=== PATIENT | female | born 1985 | race Caucasian/White ===

== ENCOUNTER → 2018-02-03 16:39 | Outpatient (CLI) | payer OTHER, SELFPAY ==
[2018-02-09 17:09] LABS: HPV APTIMA, High Risk Negative (Negative)
== END ==
PROVIDERS: Visit Provider Obstetrics & Gynecology
DX: Z12.4 Encounter for screening for malignant neoplasm of cervix (principal)
CPT/HCPCS: 87624; 88175; G0145

== ENCOUNTER → 2018-05-19 11:16 | Outpatient (CLI) | payer OTHER, SELFPAY ==
[2016-02-01 08:28] VITALS: BMI 23.6
== END ==
PROVIDERS: Family Provider Family Medicine; PCP Family Medicine; Referring Provider Family Medicine; Visit Provider Family Medicine
DX: L03.012 Cellulitis of left finger (principal)
CPT/HCPCS: 87070; 87077; 87205

== ENCOUNTER → 2020-04-12 15:53 | Outpatient (CLI) | payer OTHER, SELFPAY ==
--- NOTE | 2020-04-12 15:55 | BI_ITS ---
MAMMOGRAPHY - BILATERAL SCREENING REASON FOR EXAM: Female, 34 years old. Routine annual screening examination. PERTINENT HISTORY: Aunt with breast cancer. TECHNIQUE: Digital bilateral breast ede (3D mammographic acquisition) in the CC and MLO projections. 2-D mediolateral oblique (MLO) and craniocaudad (CC) views of both breasts were obtained. CAD: Full Field Digital Mammography with Computer Added Detection was performed. COMPARISON: None. Baseline examination. FINDINGS: Breast Composition: The breasts are heterogeneously dense, which may obscure small masses. There are no dominant masses or suspicious calcifications. No other significant abnormalities are identified. BI/SCRN MAMM (CAD)W/EDE BILAT IMPRESSION: Negative screening mammogram. Yearly followup mammogram recommended. (A) ASSESSMENT CATEGORY: Approximately 10% of breast cancers are not detected by mammography. A normal mammogram should not delay biopsy of a clinically suspicious abnormality. [id number] Electronically Signed: Familia Vines MD at 8:14 EST , Service support ,
== END ==
PROVIDERS: PCP Family Medicine; Referring Provider Obstetrics & Gynecology; Visit Provider Obstetrics & Gynecology
DX: Z12.31 Encounter for screening mammogram for malignant neoplasm of breast (principal); Z80.3 Family history of malignant neoplasm of breast
CPT/HCPCS: 77063; 77067

== ENCOUNTER 2021-05-08 12:07 | Outpatient (CLI) | payer OTHER, SELFPAY ==
[2021-05-10 14:24] LABS: HPV APTIMA, High Risk Negative (Negative)
== END 2021-05-08 23:59 | disposition home or self-care (01) ==
LOC: LABSPEC 12:08
PROVIDERS: PCP Family Medicine; Visit Provider Obstetrics & Gynecology
DX: Z12.4 Encounter for screening for malignant neoplasm of cervix (principal)
CPT/HCPCS: 87624; 88175; G0145

== ENCOUNTER → 2021-10-05 | Outpatient (CLI) | payer OTHER, SELFPAY ==
--- NOTE | 2021-10-05 13:55 | RAD_ITS ---
STUDY: X-RAY - NASAL BONES REASON FOR EXAM: Female, 36 years old. NASAL TRAUMA TECHNIQUE: 3 view(s) of the nasal bones. COMPARISON: None. FINDINGS: Normal nasal bones. Normal anterior nasal spine. There is no demonstrated soft tissue swelling. The remaining visualized osseous structures are normal. Normal visualized paranasal sinuses. RAD/Nasal Bones min 3 Views IMPRESSION: Normal x-ray examination of the nasal bones. Electronically Signed: Familia Vines MD at 14:31 EDT ,
== END | disposition home or self-care (01) ==
PROVIDERS: PCP Family Medicine; Referring Provider Family Medicine; Visit Provider Family Medicine
DX: S09.92XA Unspecified injury of nose, initial encounter (principal)
CPT/HCPCS: 70160

== ENCOUNTER 2022-09-17 08:15 | Outpatient (CLI) | payer OTHER, SELFPAY ==
[2022-09-17 09:25] LABS: NATERA MAILED SPECIMEN
== END 2022-09-17 23:59 | disposition home or self-care (01) ==
LOC: PAVLAB 08:15
PROVIDERS: PCP Family Medicine; Referring Provider Registered Nurse; Visit Provider Registered Nurse
DX: Z80.3 Family history of malignant neoplasm of breast (principal)

== ENCOUNTER → 2024-08-02 | Outpatient (CLI) | payer OTHER, SELFPAY ==
--- NOTE | 2024-08-02 08:39 | BI_ITS ---
EXAM: SCRN MAMM (CAD)W/EDE BILAT DATE: 08/02/2024 CLINICAL HISTORY: F, Age 39 y/o , SCREENING MAMMOGRAM BREAST CANCER RISK ASSESSMENT: Has not been calculated. TECHNIQUE: Bilateral screening digital breast tomosynthesis with 2D and 3D images. Computer aided detection. COMPARISON: Prior exam(s) dated 04/12/2020. FINDINGS: TISSUE DENSITY: The breast tissue is heterogenously dense, which may obscure small masses. Bilateral Breast Mammographic Findings: No suspicious masses, suspicious clustered microcalcifications, architectural distortion or secondary sign of malignancy is identified in either breast. Benign-appearing round microcalcifications are seen in both breasts. Benign round microcalcifications are seen in both breasts. BI/SCRN MAMM (CAD)W/EDE BILAT IMPRESSION: OVERALL FINAL ASSESSMENT: BIRADS 2 BENIGN FINDING RECOMMENDATION: Routine annual follow-up in 1 Year A letter with findings and recommendations will be mailed to the patient. Reading Location: [id number]
== END | disposition home or self-care (01) ==
LOC: OPBI 08:38
PROVIDERS: PCP Family Medicine; Referring Provider Obstetrics & Gynecology; Visit Provider Obstetrics & Gynecology
DX: Z12.31 Encounter for screening mammogram for malignant neoplasm of breast (principal)
CPT/HCPCS: 77063; 77067

== ENCOUNTER → 2025-03-09 | Outpatient (CLI) | payer OTHER, SELFPAY ==
--- NOTE | 2025-03-09 09:46 | RAD_ITS ---
PROCEDURE: CHEST PA AND LATERAL 03/09/2025 REASON FOR EXAM: SWELLING OVER R SC JOINT. TECHNIQUE: Procedure Code: RADCXR Modality: DX Procedure: CHEST PA AND LATERAL FINDINGS: No focal consolidation. No pleural effusion or pneumothorax. Cardiac silhouette is within normal limits. No acute fractures. RAD/Chest PA and Lateral IMPRESSION: No focal consolidation. Reading Location: [id number]
--- OUTSIDE RECORDS SUMMARY | 2025-03-09 10:46 | XMS RPT_ITS | CCD ---
Author Organization [facility] Care Team Providers Care Embedded Firmware Developer Name Role Phone NOEMÍ ELDRIDGE SUMMER Unavailable Unavailable NOEMÍ ELDRIDGE SUMMER Unavailable Unavailable NOEMÍ ELDRIDGE SUMMER Unavailable Unavailable Dr. Josias Nobles Primary Care Provider [phone] Dr. Josias Nobles Referring Provider Dr. Aniyah Luevano Attending Provider Dr. Jose Alberto Nobles MD Primary Care Provider Dr. Aniyah Luevano DO Attending Provider Dr. Aniyah Luevano DO Referring Provider Dr. Jose Alberto Nobles MD Referring Provider [phone] Jose Alberto Nobles Primary Care Unavailable Jose Alberto Nobles Referring Unavailable Marifer Oneil Attending Unavailable Jose Alberto Nobles Referring Unavailable Marifer Oneil Attending Unavailable Jose Alberto Nobles Primary Care Unavailable Aniyah Luevano Attending Aniyah Hargrove Referring UnavailJose Alberto Saunders Primary Care Unavailable Jose Alberto Nobles Referring Unavailable Aniyah Luevano Attending UnavailJose Alberto Saunders Primary Care Unavailable Allergies Allergy Classification Reported Allergen(s) Allergy Type Date of Onset Reaction(s) Facility (3 sources) Cephalexin Drug Allergy 09-10-[address] [facility] (1 source) Cephalexin Drug Allergy 09-20-2024 [facility] Repository Medications Current Medications Medication Drug Class(es) Dates Sig (Normalized) Sig (Original) [place] (Nk) (3 sources) Start: 09-10-2022 [place] (Nk) A ctive September 10, 2022 12:00am Completed/Discontinued Medications Medication Drug Class(es) Dates Sig (Normalized) Sig (Original) acetaminophen 325 mg / oxyCODONE hydrochloride 5 mg oral tablet (3 sources) Opioid Agonist Start: 02-01-2016 End: 09-10-2022 take 1 tablet by mouth every four hours as needed for pain Oxycodone-Acetamino phen 1 TABLET tablet Discontinued 1 - 2 {tbl} PO EVERY 4 HOURS NEEDED as needed for Pain February 01, 2016 1:00am September 10, 2022 8:57am 1 tab for moderate pain 2 tabs for severe pain Start: 02-01-2016 End: 09-10-2022 take 1 tablet by mouth every four hours as needed for pain Oxycodone-Acetaminophen Discontinued 1 - 2 TABLET PO EVERY 4 HOURS NEEDED February 01, 2016 1:00am September 10, 2022 8:57am 1 tab for moderate pain 2 tabs for severe pain docusate sodium 100 mg oral capsule (3 sources) Start: 02-01-2016 End: 09-10-2022 take 1 capsule by mouth twice daily as needed for constipation Docusate Sodium (Colace) 100 MG capsule Discontinued 100 mg PO TWICE DAILY NEEDED as needed for Constipation 60 0 February 01, 2016 1:00am September 10, 2022 8:57am ibuprofen 800 mg oral tablet (3 sources) Nonsteroidal Anti-inflammatory Drug Start: 02-01-2016 End: 09-10-2022 take 1 tablet by mouth three times daily as needed for pain Ibuprofen (Motrin) 800 MG tablet Discontinued 800 mg PO 3 TIMES DAILY NEEDED as needed for Pain 40 February 01, 2016 1:00am September 10, 2022 8:57am Vit,Mrci97-Bwro -Folic (Prenatabs Fa) 1 TABLET tablet (3 sources) Start: 12-14-2015 End: 09-10-2022 take 1 tablet by mouth once daily Vit,Cdah24-Znix-Bv lic (Prenatabs Fa) 1 TABLET tablet Discontinued 1 {tbl} PO DAILY December 14, 2015 12:00am September 10, 2022 8:57am Start: 12-14-2015 End: 09-10-2022 take 1 tablet by mouth once daily Vit,Yoqk87-Lxnu-Jrjds (Prenatab s Fa) 1 TABLET tablet Discontinued 1 TABLET PO DAILY December 14, 2015 12:00am September 10, 2022 8:57am Problems Problem Classification Problem Date Documented Date Episodic/Chronic Other congenital anomalies (3 sources) Other congenital malformations of abdominal wall; 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 Results Test Name Value Interpretation Reference Range Facility Dental Sales Representative Office Visit Reporton 09-20-2024 Dental Sales Representative Office Visit Report [facility] [address], [address] [place] [address] OFFICE VISIT Date of Service: 09/20/24 MR#: [id number] Acct: [id number] Name: NAOMI SHORE Rep #: [id number] : 1985 Provider: Dr. 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) Milieu Therapist Required: No Is patient in pain?: No Allergies cephalexin Allergy (Verified 09/20/24 10:13) Rash Medications ???Medication ???Instructions ???Recorded ???Confirmed ???Type NK 09/10/22 09/20/24 History Post menopausal: No Patient : No : No PFSH Medical History Genetic testing of female Surgical History S/P tubal ligation Family History Aunt Breast cancer Grandmother Ovarian cancer Social History Smoking Status: Never smoker alcohol intake: never substance use type: does not use caffeine: No what type of physical activity do you participate in: running frequency: 5-6 times per week seatbelt use: always do you feel safe at home: Yes additional social history: -Shayne History 2 Elective abortions Hx Para 2 Spontaneous abortions Hx # Term Pregnancies Ectopic pregnancies Hx # Pregnancies Multiple births # of living children Past Pregnancies Del. Date Name GA/Weeks Outcome Route Bth Weight Infant Gen Labor Lgth Anesthesia Del Locatn Provider FOB Unknown Drew 41 Unknown Yue 41 HPI Encounter for routine gynecological examination Details: NAOMI SHORE is a 39 year old who presents for annual exam. Last PAP:05/08/21, normal with neg HPV History of abnormal PAP: no Last mammogram: age 34 normal- baseline done for fhx of breast cancer History of abnormal mammogram: no Colon cancer screening: n/a Other preventative health care screenings: followed by pc Female Reproductive History Cycle Length: 21-35 Bleeding Duration: 5 Questions: metorrhagia: No, sexually active: Yes, dyspareunia: No and PCB: No Menopausal Symptoms: No hot flashes, No night sweats, No weight change, No mood changes, No difficulty concentrating, No sleep problems and No change in libido ROS Const Constitutional: Reports as per HPI; Denies fatigue, increased appetite, poor appetite, night sweats, weight gain or weight loss Cardio Card: Denies chest pain Resp Resp: Denies cough or dyspnea GI GI: Reports as per HPI; Denies abdominal pain, bloating, constipation, nausea or vomiting : Reports as per HPI and other; Denies difficulty voiding, dysuria, hematuria, hot flashes, nipple discharge, pelvic pain, prolapse symptoms, urinary frequency, urinary incontinence, urinary urgency, vaginal discharge, vaginal dryness, vaginal odor or vaginal pruritus Skin Skin/Breast: Denies changing lesions, breast mass, breast pain, breast skin changes or nipple discharge Psych Psych: Denies anxiety, change in libido, depression or difficulty concentrating Exam Const General: cooperative, healthy appearing, comfortable, no acute distress, well developed and well groomed HENMT Head: normal to inspection and normocephalic Ears: hearing grossly normal bilaterally and external ears normal Nose: external nose normal Face and sinus: normal facial exam Neck Neck: normal visual inspection, full ROM and no lymphadenopathy Thyroid: thyroid normal Chest Chest palpation inspection: normal inspection of the chest Breast inspection: normal inspection of the breasts and normal inspection of the axillae Breast palpation: normal palpation of the breasts, normal palpation of the axillae and no axillary lymphadenopathy Resp Effort Inspection: normal respiratory effort GI Inspection: normal to inspection and non-distended Palpation: soft, no hepatosplenomegaly and no guarding General: bladder normal to palpation External Female Exam: normal external appearance, normal appearance of the urethra and no lesions Urethra: normal appearance of the urethra and normal palpation Speculum Exam - Vagina: normal appearance of the vagina and normal vaginal discharge Speculum Exam - Cervix: normal appearance of the cervix, no cervical discharge, no lesions and nontender Bimanual Exam- Vagina Uterus: normal bimanual exam, uterine size normal, bladder normal to palpation, No tender, uterine mobility normal, consistency normal, non-tender (more content not included)... Normal [facility] Breast imaging reportOrdered By: Nella Gibson on 08-02-2024 Study report [facility] Imaging Services [address] [place], [place] [id number] SCRN MAMM (CAD)W/EDE BILAT MR#: [id number] Acct: [id number] Name: NAOMI SHORE Rep #: [id number] : 1985 F 39 From: Kamaljit Gibson DO PCP: Dr. Jose Alberto Nobles MD Status: REG CLI Study:SCRN MAMM (CAD)W/EDE BILAT Date of Exa m: 08/02/24 Exam# [id number] Ordering Dr: Aniyah Roca DO EXAM: SCRN MAMM (CAD)W/EDE BILAT DATE: 08/02/2024 CLINICAL HISTORY: F, Age 39 y/o , SCREENING MAMMOGRAM BREAST CANCER RISK ASSESSMENT: Has not been calculated. TECHNIQUE: Bilateral screening digital breast tomosynthesis with 2D and 3D images. Computeraided detection. COMPARISON: Prior exam(s) dated 04/12/2020. FINDINGS: TISSUE DENSITY: The breast tissue is heterogenously dense, which may obscure small masses. Bilateral Breast Mammographic Findings: No suspicious masses, suspicious clustered microcalcifications, architectural distortion or secondary sign of malignancy is identified in either breast. Benign-appearing round microcalcifications are seen in both breasts. Benign round microcalcifications are seen in both breasts. BI/SCRN MAMM (CAD)W/EDE BILAT IMPRESSION: OVERALL FINAL ASSESSMENT: BIRADS 2 BENIGN FINDING RECOMMENDATION: Routine annual follow-up in 1 Year A letter with findings and recommendations will be mailed to the patient. Reading Location: [id number] CC: Dr. Jose Alberto Nobles MD; Dr. Aniyah Luevano DO ~ Location Man: Signed [facility] SCRN MAMM (CAD)W/EDE BILATo n 08-02-2024 SCRN MAMM (CAD)W/EDE BILAT [facility] Imaging Services [address] [place] [id number] SCRN MAMM (CAD)W/EDE BILAT MR#: [id number] Acct: [id number] Name: NAOMI SHORE Rep #: [id number] : 1985 F 39 From: Nella Recinos PCP: Dr. Jose Alberto Nobles MD Status: [facility] Study: SCRN MAMM (CAD)W/EDE BILAT Date of Exam: 07/22 05/18 Exam# [id number] Ordering Dr: Aniyah Luevano DO EXAM: SCRN MAMM (CAD)W/EDE BILAT DATE: 08/02/2024 CLINICAL HISTORY: F, Age 39 y/o , SCREENING MAMMOGRAM BREAST CANCER RISK ASSESSMENT: Has not been calculated. TECHNIQUE: Bilateral screening digital breast tomosynthesis with 2D and 3D images. Computer aided detection. COMPARISON: Prior exam(s) dated 04/12/2020. FINDINGS: TISSUE DENSITY: The breast tissue is heterogenously dense, which may obscure small masses. Bilateral Breast Mammographic Findings: No suspicious masses, suspicious clustered microcalcifications, architectural distortion or secondary sign of malignancy is identified in either breast. Benign-appearing round microcalcifications are seen in both breasts. Benign round microcalcifications are seen in both breasts. BI/SCRN MAMM (CAD)W/EDE BILAT IMPRESSION: OVERALL FINAL ASSESSMENT: BIRADS 2 BENIGN FINDING RECOMMENDATION: Routine annual follow-up in 1 Year A letter with findings and recommendations will be mailed to the patient. Reading Location: [id number] CC: Dr. Jose Alberto Nobles MD; Dr. Aniyah Luevano DO Location Man: Signed Normal [facility] Dental Sales Representative Office Visit Reporton 12-04-2023 Dental Sales Representative Office Visit Report [facility] [address], [address] [place] [address] OFFICE VISIT Date of Service: 12/04/23 MR#: [id number] Acct: [id number] Name: NAOMI SHORE Rep #: [id number] : 1985 Provider: SYLVIA Pelayo Age/Sex: 38/F Location: [facility] Status: Signed Intake Vital Signs 10/23/23 14:56 12/04/23 08:51 Height 5 ft 2 in 5 ft 2 in Weight: 126 lb BMI 23.0 BP 106/69 Intake Visit Reasons: 4-6 wk follow up Chief Complaint: 4-6wk cyst follow up Milieu Therapist Required: No Is patient in pain?: No Allergies cephalexin Allergy (Verified 12/04/23 08:49) Rash Medications ???Medication ???Instructions ???Recorded ???Confirmed ???Type NK 09/10/22 12/04/23 History Is last menstrual period known: Yes Last Menstrual Period: 11/23/23 Post menopausal: No Patient : No : No Control Method: none PFSH Medical History Genetic testing of female Surgical History S/P tubal ligation Family History Aunt Breast cancer Grandmother Ovarian cancer Social History Smoking Status: Never smoker alcohol intake: never substance use type: does not use caffeine: No what type of physical activity do you participate in: running frequency: 5-6 times per week seatbelt use: always do you feel safe at home: Yes additional social history: -Shayne HPI 4-6 wk follow up Details: NAOMI SHORE is a 38 year old who presents for re-eval of inclusion cyst. She reports this is if anything improved, not worse. She reports there is no pain, swelling, erythema, or fever chills. Female Reproductive History Last Menstrual Period: 11/23/23 History 2 Elective abortions Hx Para 2 Spontaneous abortions Hx # Term Pregnancies Ectopic pregnancies Hx # Pregnancies Multiple births # of living children Past Pregnancies Del. Date Name GA/Weeks Outcome Route Bth Weight Infant Gen Labor Lgth Anesthesia Del Locatn Provider FOB Unknown Drew 41 Unknown Yue 41 ROS Const ROS Unobtainable: All systems reviewed are unremarkable except as noted in H Exam Const General: cooperative, healthy appearing, comfortable and well developed Speculum Exam - Vagina: normal appearance of the vagina (simple inclusion cyst again noted clitoral. ) and normal vaginal discharge Neuro General: patient alert, patient awake and moves all extremities Coding Level of Care Code Established Pt Off vis,est,level 2 Patient Type Established Diagnoses Inclusion cyst of vulva N90.7 Assessment and Plan Assessment and Plan (1) Inclusion cyst of vulva: Status: Acute Plan: Continued expectant management; notify office with worsening of symptoms or need for removal. 12/04/23 0908 Date Marifer Boyer Signature: Date (if applicable) CC: Normal [facility] Dental Sales Representative Office Visit Reporton 10-23-2023 Dental Sales Representative Office Visit Report [facility] [address] [place] [address] OFFICE VISIT Date of Service: 10/23/23 MR#: [id number] Acct: [id number] Name: NAOMI SHORE Rep #: [id number] : 1985 Provider: SYLVIA Pelayo Age/Sex: 38/F Location: [facility] Status: Signed Intake Vital Signs 09/17/23 09:31 10/09/23 10:58 10/23/23 14:51 10/23/23 14:56 Height 5 ft 2 in 5 ft 2 in 5 ft 2 in 5 ft 2 in Weight: 127 lb BMI 23.2 BP 133/74 H Intake Visit Reasons: PT HAS CYST Chief Complaint: Cyst Milieu Therapist Required: No Is patient in pain?: No Allergies cephalexin Allergy (Verified 10/23/23 14:50) Rash Medications ???Medication ???Instructions ???Recorded ???Confirmed ???Type NK 09/10/22 10/23/23 History Is last menstrual period known: Yes Last Menstrual Period: 10/01/23 Post menopausal: No Patient : No : No PFSH Medical History Genetic testing of female Surgical History S/P tubal ligation Family History Aunt Breast cancer Grandmother Ovarian cancer Social History Smoking Status: Never smoker alcohol intake: never substance use type: does not use caffeine: No what type of physical activity do you participate in: running frequency: 5-6 times per week seatbelt use: always do you feel safe at home: Yes additional social history: -Shayne LORI PT HAS CYST Details: NAOMI SHORE is a 38 year old who presents for small lump noted to right/middle labia. She reports she noticed this approx 5 months ago. She reports no drainage, no pain, no fever or chills, redness. She reports this has been consistently there; has not noticed change to this. Female Reproductive History Last Menstrual Period: 10/01/23 Questions: metorrhagia: No and sexually active: Yes History 2 Elective abortions Hx Para 2 Spontaneous abortions Hx # Term Pregnancies Ectopic pregnancies Hx # Pregnancies Multiple births # of living children Past Pregnancies Del. Date Name GA/Weeks Outcome Route Bth Weight Infant Gen Labor Lgth Anesthesia Del Locatn Provider FOB Unknown Drew 41 Unknown Yue 41 ROS Const ROS Unobtainable: All systems reviewed are unremarkable except as noted in H Exam Const General: cooperative, healthy appearing, comfortable and well developed Speculum Exam - Vagina: normal appearance of the vagina (exam completed with SM with simple inclusion cyst noted clitoral. ) and normal vaginal discharge Neuro General: patient alert, patient awake and moves all extremities Coding Level of Care Code Established Pt Off vis,est,level 2 Patient Type Established Diagnoses Inclusion cyst of vulva N90.7 Assessment and Plan Assessment and Plan (1) Inclusion cyst of vulva: Status: Acute Plan: Expectant management for now; warm compress at home. Will return in 4-6 weeks to re-assess and ensure stability. Call office sooner with questions or concerns. 10/23/23 1522 Date Marifer Linaresigner Signature: Date (if applicable) CC: Normal [facility] No Panel InformationOrdered By: Camryn Langford on 09-17-2022 Miscellaneous Test Comment MAILED SPECIMEN [facility] CNTHERAPYon 06-12-2021 CNTHERAPY OT/PT/Speech Visit (PTWS) NAOMI SHORE ([id number]) 1985 F Date Time Provider Department 06/12/21 2:45 PM BAIRON HE Date Time Provider Department Center 06/12/2021 2:45 PM [id number] LLOYD Reason for Visit: PT Discharge [752] Primary Visit Diagnosis:JAY (stress urinary incontinence, female) [N39.3] Allergies As of Date: 06/12/2021 (Not on File) Date Reviewed: Never Reviewed Normal [facility] CNTHERAPYon 06-05-2021 CNTHERAPY OT/PT/Speech Visit (PTWS) NAOMI SHORE ([id number]) 1985 F Date Time Provider Department 06/05/21 2:45 PM ABIRON HE Date Time Provider Department [place] 06/05/2021 2:45 PM [id number] LLOYD Reason for Visit: Physical Therapy [503] Primary Visit Diagnosis:JAY (stress urinary incontinence, female) [N39.3] Allergies As of Date: 06/05/2021 (Not on File) Date Reviewed: Never Reviewed Normal [facility] CNTHERAPYon 05-29-2021 CNTHERAPY OT/PT/Speech Visit (PTWS) NAOMI SHORE ([id number]) 1985 F Date Time Provider Department 05/29/21 2:45 PM BAIRON HE Date Time Provider Department Center 05/29/2021 2:45 PM [id number] LLOYD Reason for Visit: Physical Therapy [503] Primary Visit Diagnosis:JAY (stress urinary incontinence, female) [N39.3] Allergies As of Date: 05/29/2021 (Not on File) Date Reviewed: Never Reviewed Normal [facility] CNTHERAPYon 05-22-2021 CNTHERAPY OT/PT/Speech Visit (PTWS) NAOMI SHORE ([id number]) 1985 F Date Time Provider Department 05/22/21 2:45 PM BAIRON HE Date Time Provider Department Center 05/22/2021 2:45 PM [id number], CARA PTWS [facility] Reason for Visit: PT Eval [747] Primary Visit Diagnosis:JAY (stress urinary incontinence, female) [N39.3] Allergies As of Date: 05/22/2021 (Not on File) Date Reviewed: Never Reviewed Letter Text Normal [facility] Vital Signs Date Time Vital Sign Value Performing Clinician Juan medeiros 09-20-2024 10:14-0400 Body height 157.[address] Jose Alberto Nobles MD Work Phone: [facility] 09-20-2024 10:14-0400 Body mass index (BMI) [Ratio] 23.6 kg/m2 Dr. Jose Alberto Nobles MD Work Phone: [facility] 09-20-2024 10:14-0400 Body weight 58.[address] Jose Alberto Nobles MD Work Phone: [facility] 09-20-2024 10:14-0400 Diastolic blood pressure 80 mm[Hg] Dr. Jose Alberto Nobles MD Work Phone: [facility] 09-20-2024 10:14-0400 Systolic blood pressure 122 mm[Hg] Dr. Jose Alberto Nobles MD Work Phone: [facility] 09-10-2022 08:57-0400 Body height 157.[address] Josias coe Work Phone: [facility] 09-10-2022 08:57-0400 Body mass index (BMI) [Ratio] 22.9 kg/m2 Dr. Josias Nobles Work Phone: [facility] 09-10-2022 08:57-0400 Body weight 56.[address] Josias coe Work Phone: [facility] 09-10-2022 08:57-0400 Diastolic blood pressure 74 mm[Hg] Dr. Josias Nobles Work Phone: [facility] 09-10-2022 08:57-0400 Systolic blood pressure 115 mm[Hg] Dr. Josias Nobles Work Phone: [facility] Encounters Encounter Date Encounter Type Care Provider Facility Start: 09-20-2024 End: 09-20-[address] Aniyah Luevano DO -[facility] Work Phone: Start: 09-20-2024 End: 09-20-[address] Aniyah Luevano DO [facility] Start: 09-20-2024 End: 09-20-[address] Jose Alberto Nobles MD Work Phone: -[facility] Start: 08-02-2024 End: 08-02-[address] Jose Alberto Nobles MD Work Phone: [facility] Work Phone: Start: 08-02-2024 End: 08-02-[address] Aniyah Luevano DO -[facility] Work Phone: Start: 08-02-2024 End: 08-02-2024 ambulatory Aniyah Luevano Facility:[facility] Start: 12-04-2023 End: 12-04-2023 ambulatory Jose Alberto Nobles Facility:[facility] Start: 10-23-2023 End: 10-23-2023 ambulatory Jose Alberto Nobles Facility:[facility] Start: 09-17-2022 End: 09-17-[address] Josias Nobles Work Phone: [facility] Work Phone: Start: 09-17-2022 End: 09-17-[address] Josias Nobles Work Phone: [facility] Start: 09-10-2022 End: 09-10-[address] Josias Nobles Work Phone: [facility] Work Phone: Start: 01-07-2017 End: 03-14-2017 Ambulatory NOEMÍ Russell [facility] Procedures Date Procedure Procedure Detail Performing Clinician Start: 08-02-2024 Screening mammography Dania Nobles MD Work Phone: Payers Date Payer Category Payer Self-pay [id number] 2023 Private Health Insurance [id number] 2012 Unknown [id number] Unknown [id number] Unknown [id number] Unknown [id number] Unknown [id number] Unknown [id number] Unknown [id number] Social History Date Type Detail Facility [facility]: [facility] Start: 1985 Sex [facility]igned At [facility] Start: 10-09-2023 [facility] Progress note 06-12-2021 Note Date & Type Note Facility 06-12-2021 Note HNO ID: [id number] Author: Bairon He PT Service: ? Author Type: Physical Therapist Type: Progress Notes Filed: 06/12/2021 3:14 PM Note Text: Episode Visit Count: 4 Therapist That Will Oversee The Plan Of Care: Bairon He Start of Care Date: 05/22/21 Onset Date: 11/23/15 Plan of Care Certification Date: 05/22/21 Next Certification Due Date: 07/21/21 Patient Identified by Name and Date of : Yes REHABILITATION AND SPORTS THERAPY PHYSICAL THERAPY DISCONTINUANCE OF CARE PLAN OF CARE UPDATE: Assessment: Naomi Shore is discontinued from Physical Therapy services due to goal achievement and maximal benefit.. Patient was seen for 4 visits from Start of Care Date: 05/22/21 to 06/12/2021 and treatment included: Therapeutic exercise and Self-correction management. Goals for Episode of Care: created on 05/22/21 Updated on: 06/12/2021 Incontinence: Patient to demonstrate independence with HEP-MET Increase endurance of pelvic floor to: 10 seconds-MET Patient able to complete 5 quick flicks in 10 seconds to improve JAY with functional tasks-MET Patient able to cough, sneeze, lift and/or exercise without leaking-MET Patient Goals: improve bladder function SUBJECTIVE: Patient Reason for Visit: Pt reports no JAY, able to sneeze, jump, and exercise without leaking. Pt reports good compliance with HEP. Pt reports being pleased with progress, feels comfortable continuing on her own at home. Pain: Pain Pain Level: 0 Post Treatment Pain Post Treatment Pain Level: 0 PROMIS Scales T-scores: mean of general population = 50. 5 points is clinically meaningfully difference Percentiles provide an indication of how the patient's score ranks in relation to the general population. Higher percentile rankings indicate better function/quality of life. 50th percentile is the average of the general population and indicates half of respondents had a worse score. T-scores: mean of general population = 50. 5 points is clinically meaningfully difference Percentiles provide an indication of how the patient's score ranks in relation to the general population. Higher percentile rankings indicate better function/quality of life. 50th percentile is the average of the general population and indicates half of respondents had a worse score. OBJECTIVE MEASURES WITH LEVEL OF FUNCTION: Pelvic Floor Stress Incontinence: No Pelvic Floor Muscle Assessment Consent for pelvic assessment/testing and treatment: Patient was educated regarding pelvic floor physical therapy assessment/treatment which may include pelvic floor and girdle muscle assessment externally or internally (vaginal or rectal approach).;Patient verbalized consent for the above treatment approaches today. Patient understands they have control of the treatment and an opportunity to stop treatment at any time. Pelvic Floor Muscle Assessment: PERFECT;Muscle Dynamics Power: 4 Endurance: 12 Fast Reps: 10 Contracton Pressure: Moderate squeeze, felt all the way around finger surface Duration of Contraction: >3 seconds Recruitment of pelvic floor muscles: Coordinated Pelvic Floor Manual Assessment Pelvic Floor Tenderness/Hyperactivity: Tested Vaginally in Tested Vaginally in : Supine/hooklying (No tightness/tenderness noted.) TREATMENT: Therapeutic Exercise: 1: Reassessment 2: clamshells, 1x10 each 3: *sidelying hip abduction, 2x10 each 4: quadruped TA bracing, 1x10 5: *quadruped TA bracing with alternating arm lift, 1x10 each 6: *quadruped TA bracing with alternating leg lift, 1x10 each 7: *quadruped TA bracing with alternating arm/leg lift, 1x10 each 8: Discussed discharge planning Skilled Intervention: Patient was educated in proper exercise technique and purpose for exercises. Reviewed and educated patient on additions/changes for home exercise program as above (*). Skilled judgment was provided in selection of appropriate interventions. Provided written instruction for home exercise program to facilitate proper performance and compliance. Billing Therapeutic Exercise Treatment Minutes: 31 Total Treatment Time Minutes (timed and untimed codes) : 31 Bairon He PT [facility] Progress note 06-05-2021 Note Date & Type Note Facility 06-05-2021 Note HNO ID: [id number] Author: Bairon He PT Service: ? Author Type: Physical Therapist Type: Progress Notes Filed: 06/05/2021 3:24 PM Note Text: Episode Visit Count: 3 Therapist That Will Oversee The Plan Of Care: Bairon He Start of Care Date: 05/22/21 Onset Date: 11/23/15 Plan of Care Certification Date: 05/22/21 Next Certification Due Date: 07/21/21 Patient Identified by Name and Date of : Yes REHABILITATION AND SPORTS THERAPY PHYSICAL THERAPY TREATMENT NOTE ASSESSMENT: Naomi Shore tolerated the session with no issues. She demonstrated continued improvements in stress urinary incontinence per patient report. The patient will continue to benefit from ongoing skilled physical therapy to progress toward set goals. PLAN FOR NEXT VISIT: reassessment SUBJECTIVE: Patient Reason for Visit: Pt reports no JAY, able to sneeze without leaking, does knack technique rather than squeezing inner thighs together to brace PF. Pt reports good compliance with HEP, is thinking about training for a long distance running race in the near future. Pain: Pain Pain Level: 0 Post Treatment Pain Post Treatment Pain Level: 0 OBJECTIVE MEASURES WITH LEVEL OF FUNCTION: Pelvic Floor Stress Incontinence: No TREATMENT: Therapeutic Exercise: 1: kegal holds, 7sec hold with 4sec rest, 1x10 2: *kegal supersets, 1x10 3: posterior pelvic tilt, 1x10 4: *posterior pelvic tilt with alternating marches, 2x10 5: *clamshells, 2x10 each 6: *quadruped TA bracing, 2x10 7: Reviewed appropriate return to running program Skilled Intervention: Patient was educated in proper exercise technique and purpose for exercises. Reviewed and educated patient on additions/changes for home exercise program as above (*). Skilled judgment was provided in selection of appropriate interventions. Provided written instruction for home exercise program to facilitate proper performance and compliance. Billing Therapeutic Exercise Treatment Minutes: 41 Total Treatment Time Minutes (timed and untimed codes) : 41 Bairon He PT [facility] Progress note 05-29-2021 Note Date & Type Note Facility 05-29-2021 Note HNO ID: [id number] Author: Bairon He PT Service: ? Author Type: Physical Therapist Type: Progress Notes Filed: 05/29/2021 3:11 PM Note Text: Episode Visit Count: 2 Therapist That Will Oversee The Plan Of Care: Bairon He Start of Care Date: 05/22/21 Onset Date: 11/23/15 Plan of Care Certification Date: 05/22/21 Next Certification Due Date: 07/21/21 Patient Identified by Name and Date of : Yes REHABILITATION AND SPORTS THERAPY PHYSICAL THERAPY TREATMENT NOTE ASSESSMENT: Naomi Shore tolerated the session with no issues. She demonstrated improvements in JAY per patient report. The patient will continue to benefit from ongoing skilled physical therapy to progress toward set goals. PLAN FOR NEXT VISIT: continue to progress exercises SUBJECTIVE: Patient Reason for Visit: Pt reports no episodes of JAY since last visit, has not done activities that cause UI (sneezing, coughing, higher intensity exercise). Pt reports good compliance with HEP. Pain: Pain Pain Level: 0 Post Treatment Pain Post Treatment Pain Level: 0 OBJECTIVE MEASURES WITH LEVEL OF FUNCTION: Pelvic Floor Stress Incontinence: No TREATMENT: Therapeutic Exercise: 1: kegal holds, 5sec hold with 5sec rest, 1x10 2: hooklying hip abduction with L5 TB, 2x10 3: *supine TA bracing, 2x10 4: *bridge with glute activation, 2x10 5: *posterior pelvic tilt, 2x10 Skilled Intervention: Patient was educated in proper exercise technique and purpose for exercises. Reviewed and educated patient on additions/changes for home exercise program as above (*). Skilled judgment was provided in selection of appropriate interventions. Provided written instruction for home exercise program to facilitate proper performance and compliance. Billing Therapeutic Exercise Treatment Minutes: 30 Total Treatment Time Minutes (timed and untimed codes) : 30 Bairon He PT [facility] Progress note 05-22-2021 Note Date & Type Note Facility 05-22-2021 Note HNO ID: [id number] Author: Bairon He PT Service: ? Author Type: Physical Therapist Type: Progress Notes Filed: 05/22/2021 3:33 PM Note Text: Episode Visit Count: 1 Therapist That Will Oversee The Plan Of Care: Bairon He Start of Care Date: 05/22/21 Onset Date: 11/23/15 Plan of Care Certification Date: 05/22/21 Next Certification Due Date: 07/21/21 Patient Identified by Name and Date of : Yes REHABILITATION AND SPORTS THERAPY PHYSICAL THERAPY EVALUATION PLAN OF CARE: Assessment: Naomi Shore presents with chief complaint of stress urinary incontinence that interferes with compromised bladder function . She presents with impairments in decreased endurance of pelvic floor muscles; impaired bladder function. Prognosis for therapy is Excellent due to: current objective clinical presentation;good overall health status . She will benefit from skilled therapy services to meet the goals established for this plan of care as noted below. Goals for Episode of Care: created on 05/22/21 through 07/21/21 Incontinence: Patient to demonstrate independence with HEP Increase endurance of pelvic floor to: 10 seconds Patient able to complete 5 quick flicks in 10 seconds to improve JAY with functional tasks Patient able to cough, sneeze, lift and/or exercise without leaking Patient Goals: improve bladder function Planned Interventions, Frequency, and Duration: Current Frequency: 1x/week Duration: 3 weeks (reassess at 3 weeks and progress as indicated) Total Number of Visits Planned: 3 Planned Treatment Interventions: Therapeutic exercise (51457);Manual therapy (35668);Self-correction management (49135);Patient/Family/Caregiver Education PLAN FOR NEXT VISIT: progress strengthening exercises Patient demonstrates good understanding of plan of care and treatment. The above goals and plan of care were discussed and agreed upon by patient/family. 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 5 points is clinically meaningfully difference Percentiles provide an indication of how the patient's score ranks in relation to the general population. Higher percentile rankings indicate better function/quality of life. 50th percentile is the average of the general population and indicates half of respondents had a worse score. T-scores: mean of general population = 50. 5 points is clinically meaningfully difference Percentiles provide an indication of how the patient's score ranks in relation to the general population. Higher percentile rankings indicate better function/quality of life. 50th percentile is the average of the general population and indicates half of respondents had a worse score. OBJECTIVE MEASURES WITH LEVEL OF FUNCTION: Pelvic Floor Pregnancies: 2 Births: 2 Vaginal Delivery: Standard Pain with penetration: No Urinary/Bowel History : Urinary History;Bowel History Difficulty starting stream: No Incomplete emptying: No Stress Incontinence: Cough/sneeze;Exercise;Lifting;Jumping;Run renny Urgency: No Nocturia (times per night): 0 Daytime Frequency (hours): 2-3 Fluid Intake: Water (8 oz measurements) Water : 6-8 Difficulty evacuating / Excessive Straining: No Incomplete emptying: No Bowel Movement Frequency: 1x/every other day Fecal incontinence: No Pelvic Floor Muscle Assessment Consent for pelvic assessment/testing and treatment: Patient was educated regarding pelvic floor physical therapy assessment/treatment which may include pelvic floor and girdle muscle assessment externally or internally (vaginal or rectal approach).;Patient verbalized consent for the above treatment approaches today. Patient understands they have control of the treatment and an opportunity to stop treatment at any time. Pelvic Floor Muscle Assessment: PERFECT;Muscle Dynamics Power: 4 Endurance: 3 Fast Reps: 10 Contracton Pressure: Moderate squeeze, felt all the way around finger surface Duration of Contraction: >3 seconds Recruitment of pelvic floor muscles: Coordinated Range of Motion: Normal Ability to Lengthen pelvic floor: Yes Pelvic Floor Manual Assessment Pelvic Floor Tenderness/Hyperactivity: Tested Vaginally in Tested (more content not included)... [facility] Evaluation note Note Date & Type Note Facility Evaluation note Diagnosis Onset Date Encounter for routine gyneco logical examination noneactive [facility] Work Phone: Evaluation note Note Date & Type Note Facility Evaluation note No assessment information availa ble [facility] Work Phone: Evaluation note Note Date & Type Note Facility Evaluation note Diagnosis Onset Date Resolution Encounter for routine gynecological examination noneactive September 20, 2024 10:11am [facility] Work Phone: Reason for referral (narrative) Note Date & Type Note Facility Reason for referral (narrative) No reason for referral information available [facility] Work Phone: Summary Purpose Family History No Family History Records Found Relationship Condition Age at Onset Recorded Date/T kristen aunt Malignant neoplasm of breast Unknown grandmother Malignant neoplasm of ovary Unknown Advance Directives No Advanced Directives Records Found Advance Directive Response Recorded Date/ Time Advance Directives No June 28 12:09pm Living Will No June 28, 2022 12:09pm Power of Coordinator Hotels No June 28 12:09pm Advance Directive Response Recorded Date/ Time Living Will No June 28, 2022 12:09pm Do you have a Healthcare Power of Coordinator Hotels? 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 Lisa Khanna MD Family Provider Active Dr. Josias Nobles MD Primary Care Provider Activ e Team Status: Inactive Member Role Status Dates Dr. Josias Nobles MD Primary Care Provider, Refe rring Provider Active Dr. Aniyah Luevano DO Attending Provider Activ e Team Status: Inactive Member Role Status Dates Dr. oJsias Nobles MD Primary Care Provider Activ e Camryn Langford CNM Attending Provider, Referring Pr yevgeniy Active Team Status: Active Member Role Status Dates Dr. Jose Alberto Nobles MD Primary Care Provider Acti ve Team Status: Inactive Member Role Status Dates Dr. Jose Alberto Nobles MD Primary Care Provider Acti ve Start: August 02, 2024 End: August 02, 2024 Dr. Aniyah Luevano DO Attending Provider Activ e Start: August 02, 2024 End: August 02, 2024 Dr. Aniyah Luevano DO Referring Provider Activ e Start: August 02, 2024 End: August 02, 2024 Team Status: Active Member Role/Relationship Status Dates Dr. Jose Alberto Nobles MD Primary Care Provider Acti ve Team Status: Inactive Member Role/Relationship Status Dates Dr. Jose Alberto Nobles MD Primary Care Provider Acti ve Start: August 02, 2024 End: August 02, 2024 Dr. Aniyah Luevano DO Attending Provider Activ e Start: August 02, 2024 End: August 02, 2024 Dr. Aniyah Luevano DO Referring Provider Activ e Start: August 02, 2024 End: August 02, 2024 Team Status: Inactive Member Role/Relationship Status Dates Dr. Jose Alberto Nobles MD Primary Care Provider Acti ve Start: September 20, 2024 End: September 20, 2024 Dr. Jose Alberto Nobles MD Referring Provider Active Start: September 20, 2024 End: September 20, 2024 Dr. Aniyah Luevano DO Attending Provider Activ e Start: September 20, 2024 End: September 20, 2024 Goals (unrecognized section and content) Goals may be documented in a n alternate sectionGoals may be documented in an alternate sectionGoals may be documented in an alternate section FOR RECORDS PERTAINING TO PATIENTS WHO ARE OR HAVE BEEN ENROLLED IN A CHEMICAL DEPENDENCY/SUBSTANCEABUSE PROGRAM, SOME INFORMATION MAY BE OMITTED. This clinical summary was aggregated from multiple sources. Caution should be exercised in using it in the provision of clinical care. This summary normalizes information from multiple sources, and as a consequence, information in this document may materially change the coding, format and clinical context of patient data. In addition, data may be omitted in some cases. CLINICAL DECISIONS SHOULD BE BASED ON THE PRIMARY CLINICAL RECORDS. [employer] provides no warranty or guarantee of the accuracy or completeness of information in this document.
== END | disposition home or self-care (01) ==
LOC: MTRAD 09:46
PROVIDERS: PCP Family Medicine; Referring Provider Family Medicine; Visit Provider Family Medicine
DX: M79.89 Other specified soft tissue disorders (principal); M25.511 Pain in right shoulder
CPT/HCPCS: 71046